=== PATIENT | female | born 1965 | race Caucasian/White ===

== ENCOUNTER 2016-11-24 19:02 | Inpatient (IN) | payer MEDICARE, OTHER ==
[~2016-11-24] VITALS: Ht 157.5 cm; Wt 54.1 kg
[~2016-11-24 19:02] MED LIST: NIT1OI2 TD; NOL20 PO
[2016-11-24] MEDS ORDERED: morphine 4 MG/ML VIAL IV STA (23:41)
[2016-11-24] MEDS ORDERED: SODIUM CHLORIDE 0.9% 1L BAG IV* STA (23:41)
[2016-11-25] MEDS ORDERED: VANCOMYCIN 1 GM (PMX) 250 ML IVPB SCH
[2016-11-25] MEDS ORDERED: PIPER-TAZO 3.375 GM IV (PMX) 100 ML IVPB ONE
--- NOTE | 2016-11-25 | RADRPT ---
PROCEDURE: XR Chest. CLINICAL INDICATION: Chest pain. Possible sepsis TECHNIQUE: Portable AP view of the chest was obtained. COMPARISON: 09/17/2014 FINDINGS: The cardiomediastinal silhouette is within normal limits. The lungs are clear. Left subclavian appr oach venous access device is again noted the tip in the upper right atrium. There is no evidence for pleural effusion, pneumothorax or pulmonary vascular congestion. The osseous structures are intact with no evidence for acute abnormality. RPTAT:HJJR IMPRESSION: No evidence for acute intrathoracic pathology or change compared to 09/17/2014. Physician Ike Date Time Electronically viewed and signed by Physician Ike on 11/25/2016 00:00 /
[2016-11-25 00:53] LABS: INR 0.99; PROTIME 13.1 Sec (12.2-14.2)
[2016-11-25 00:54] LABS: PARTIAL THROMBOPLASTIN TIME 31.4 Sec (25.0-35.0)
[2016-11-25 01:09] LABS: BASOPHILS % 0.4 % (0.0-2.0); EOSINOPHILS % 0.2 % (0.0-7.0); HEMATOCRIT 33.4 % (37.0-47.0); HEMOGLOBIN 11.3 g/dl (12.0-16.0); LYMPHOCYTES # 1.7 10^3/ul (0.8-2.9); LYMPHOCYTES % 32.8 % (15.0-51.0); MEAN CORPUSCULAR HEMOGLOBIN 30.5 pg (29.0-33.0); MEAN CORPUSCULAR HGB CONC 33.8 g/dl (32.0-37.0); MEAN CORPUSCULAR VOLUME 90.4 fl (82.0-101.0); MONOCYTE # 0.5 10^3/ul (0.3-0.9); MONOCYTES % 9.6 % (0.0-11.0); PLATELET COUNT 172 10^3/UL (140-440); RED BLOOD COUNT 3.69 10^6/ul (4.20-5.40); RED CELL DISTRIBUTION WIDTH 12.2 % (11.5-14.5); UNCORRECTED WBC 5.3 10^3/ul (4.8-10.8); WHITE BLOOD COUNT 5.3 10^3/ul (4.8-10.8)
[2016-11-25 01:14] LABS: ALANINE AMINOTRANSFERASE 28 IU/L (13-69); ALBUMIN 3.8 g/dl (3.3-4.9); ALBUMIN/GLOBULIN RATIO 1.15; ALKALINE PHOSPHATASE 96 IU/L (42-121); ANION GAP 19 (8-16); ASPARTATE AMINO TRANSFERASE 27 IU/L (15-46); BLOOD UREA NITROGEN 8 mg/dl (7-20); CALCIUM 8.9 mg/dl (8.4-10.2); CARBON DIOXIDE 19 mmol/L (21-31); CHLORIDE 98 mmol/L (97-110); CREATININE 0.53 mg/dl (0.44-1.00); GLUCOSE 90 mg/dl (70-220); POTASSIUM 4.4 mmol/L (3.5-5.1); SODIUM 132 mmol/L (135-144); TOTAL PROTEIN 7.1 g/dl (6.1-8.1); TROPONIN-I < 0.012 ng/ml (0.00-0.12)
[2016-11-25 01:15] LABS: CONDITION 1
[2016-11-25 01:44] LABS: ADD UMIC YES; URINE BILIRUBIN (Dip) NEGATIVE (NEGATIVE); URINE BLOOD (Dip) 1+ (NEGATIVE); URINE COLOR LT. YELLOW (YELLOW); URINE GLUCOSE (Dip) NEGATIVE (NEGATIVE); URINE KETONES (Dip) 15 (NEGATIVE); URINE LEUKOCYTE ESTERASE (Dip) NEGATIVE (NEGATIVE); URINE NITRITE (Dip) NEGATIVE (NEGATIVE); URINE TOTAL PROTEIN (Dip) NEGATIVE (NEGATIVE); URINE UROBILINOGEN (Dip) 0.2 E.U./dL (0.1-1.0)
--- NOTE | 2016-11-25 01:46 | RADRPT ---
PROCEDURE: Ultrasound bilateral breast CLINICAL INDICATION: Pain status post mastectomy times 3 months, swelling. The patient is status post bilateral mastectomy with implant reconstructions on 08/25/2016. The patient has right breast c ellulitis with fever and elevated white blood cell count and mild left breast discomfort. The patien t is being admitted to the hospital and placed on antibiotics. TECHNIQUE: Sonographic evaluation of bilateral reconstructed breasts was performed with samano scal e and color imaging. Images were reviewed on a high-resolution PACS workstation. COMPARISON: None available FINDINGS: Bilateral breast implants. Centered at 6 o'clock position of the reconstructed right breast there i s decreased echogenicity involving the skin and subcutaneous tissues extending to the surface of the underlying implant which is compatible with edema and inflammation and possible abscess measuring a pproximately 2.7 x 0.9 x 3.4 cm. The soft tissues surrounding the left breast implant are unremarkab le. IMPRESSION: Bilateral breast implants. Centered at 6 o'clock position of the reconstructed right breast there is decreased echogenicity involving the skin and subcutaneous tissues extending to the surface of the underlying implant which is compatible with edema and inflammation and possible abscess measuring a pproximately 2.7 x 0.9 x 3.4 cm. This is consistent with the clinical findings. Recommendation: Clinical management and follow-up. A call report was made to <<Referring Physic ians Name>> on <<DATETIME>>. BIRADS 3 - probably benign RPTAT: HJES .Nic Beaulieu MD, MD Date Time Electronically viewed and signed by .Nic Beaulieu MD, on 11/25/2016 01:46 .S/
[2016-11-25] MEDS ORDERED: DICLOFENAC SODIUM 37.5 MG/ML VIAL IV STA (01:50)
[2016-11-25] MEDS ORDERED: ACETAMINOPHEN 325 MG TAB PO ONE (02:00)
[2016-11-25 03:19] LABS: BACTERIA,URINE RARE; SQUAMOUS EPITHELIAL CELL,UR FEW; URINE RBCS NONE SEEN /HPF (0)
[2016-11-25] MEDS ORDERED: ACETAMINOPHEN 325 MG TAB PO PRN ×2 (05:30→08:30)
[2016-11-25] MEDS ORDERED: SOD CHLORIDE 0.9% 1,000 ML IV ONE (05:30)
[2016-11-25] MEDS ORDERED: ONDANSETRON 4 MG INJ IV PRN ×2 (05:30→08:30)
--- NOTE | 2016-11-25 07:13 | ERA ---
ER Documentation Chief Complaint Date/Time DATE: 11/25/16 TIME: 07:03 Chief Complaint hx breast ca, ovarian ca, fever today, taking chemo HPI This 51-year-old female presents for fever, chills, bilateral breast pain with right being greater than left. States that she is actually had right breast pain for over a week. She saw Dr. Herrmann, plastic surgeon who performed her breast implant surgery on August 25 of this year after her mastectomy. 3 days ago he started her on Bactrim. She states that the infection is getting worse. She has had no discharge.. Patient has not received chemo for over a year and states that is approximately time her Port-A-Cath to be removed. ROS All systems reviewed and are negative except as per history of present illness. Medications Home Meds Active Scripts Nitroglycerin* (Nitro-Bid* Oint (Pkt)) 1 Inch Oint, 0.5 INCH TD DAILY for 4 Days Prov:JUAN HERRMANN MD 08/26/16 Reported Medications Tamoxifen Citrate* (Tamoxifen Citrate*) 20 Mg Tab, 20 MG PO DAILY, TAB 08/11/16 Allergies Allergies: Coded Allergies: hydrocodone (Verified Allergy, Intermediate, "CRAWLING ON SKIN FEELING", 08/25/16) PMhx/Soc History of Surgery: Yes (RT BREAST LUMP REMOVED, EDNA BREAST SURGERY, HYSTERECTOMY) Anesthesia Reaction: No Hx Neurological Disorder: No Hx Respiratory Disorders: No Hx Cardiac Disorders: No Hx Psychiatric Problems: No Hx Miscellaneous Medical Probl: Yes (RT BREAST CA,OVARIAN CA) Hx Alcohol Use: No Hx Substance Use: No Hx Tobacco Use: No Smoking Status: Never smoker Physical Exam Vitals Vital Signs Date Time Temp Pulse Resp B/P Pulse Ox O2 Delivery O2 Flow Rate FiO2 11/25/16 06:51 69 18 90/64 99 Room Air 11/25/16 06:03 56 16 76/54 99 Room Air 11/25/16 04:38 98.3 69 14 83/51 99 Room Air 11/25/16 02:33 72 16 99/62 99 Room Air 11/24/16 19:37 101.9 108 20 117/59 99 Physical Exam Const: [] No acute distress Head: Atraumatic Eyes: Normal Conjunctiva ENT: Normal External Ears, Nose and Mouth. Neck: Full range of motion..~ No meningismus. Resp: Clear to auscultation bilaterally Cardio: Regular tachycardia, no murmurs Abd: Soft, non tender, non distended. Normal bowel sounds Breast exam: Left Port-A-Cath in place. Superior to Port-A-Cath there is an area of erythema. Right breast with significant erythema originating mostly in the 5 o'clock position but almost circumferential to the nipple with induration , no fluctuance, positive calor, positive moderate tenderness Back: No midline or flank tenderness Ext: No cyanosis, or edema Neur: Awake and alert and oriented 3, no focal deficits Result Diagram: 11/24/16 2342 11/24/16 2342 Results 24 hrs Laboratory Tests Test 11/24/16 23:42 11/25/16 00:37 11/25/16 02:30 11/25/16 04:30 Activated Partial Thromboplast Time 31.4Sec Alanine Aminotransferase (ALT/SGPT) 28IU/L Albumin 3.8g/dl Albumin/Globulin Ratio 1.15 Alkaline Phosphatase 96IU/L Anion Gap 19 Aspartate Amino Transf (AST/SGOT) 27IU/L Basophils # 0.010^3/ul Basophils % 0.4% Blood Urea Nitrogen 8mg/dl Calcium Level 8.9mg/dl Carbon Dioxide Level 19mmol/L Chloride Level 98mmol/L Creatinine 0.53mg/dl Direct Bilirubin 0.00mg/dl Eosinophils # 0.010^3/ul Eosinophils % 0.2% Globulin 3.30g/dl Glucose Level 90mg/dl Hematocrit 33.4% Hemoglobin 11.3g/dl INR International Normalized Ratio 0.99 Indirect Bilirubin 0.0mg/dl Lactic Acid Level 1.0mmol/L < 0.5mmol/L < 0.5mmol/L Lymphocytes # 1.710^3/ul Lymphocytes % 32.8% Mean Corpuscular Hemoglobin 30.5pg Mean Corpuscular Hemoglobin Concent 33.8g/dl Mean Corpuscular Volume 90.4fl Mean Platelet Volume 10.0fl Monocytes # 0.510^3/ul Monocytes % 9.6% Neutrophils # 3.010^3/ul Neutrophils % 57.0% Nucleated Red Blood Cells # 0.010^3/ul Nucleated Red Blood Cells % 0.0/100WBC Platelet Count 31057^3/UL Potassium Level 4.4mmol/L Prothrombin Time 13.1Sec Prothrombin Time Ratio 1.0 Red Blood Count 3.6910^6/ul Red Cell Distribution Width 12.2% Sodium Level 132mmol/L Total Bilirubin 0.0mg/dl Total Protein 7.1g/dl Troponin I < 0.012ng/ml White Blood Count 5.310^3/ul Urine Bacteria RARE Urine Bilirubin NEGATIVE Urine Clarity CLEAR Urine Color LT. YELLOW Urine Glucose NEGATIVE% Urine Hemoglobin 1+ Urine Ketones 15 Urine Leukocyte Esterase NEGATIVE Urine Microscopic RBC NONE SEEN/HPF Urine Microscopic WBC 0-2/HPF Urine Nitrite NEGATIVE Urine Specific Chauncey 1.010 Urine Squamous Epithelial Cells FEW Urine Total Protein NEGATIVE Urine Urobilinogen 0.2 E.U./dL Urine Yeast FEW Urine pH 6.0 Current Medications Medications (Trade) Dose Ordered Sig/Carissa Route PRN Reason Start Time Stop Time Status Last Admin Dose Admin Vancomycin HCl 250 ml @ 125 mls/hr ONCE IVPB 11/25/16 00:00 11/25/16 01:59 DC 11/25/16 01:57 Piperacillin Sod/ Tazobactam Sod (Zosyn 3.375gm/ 100 ml (Pmx)) 100 ml @ 200 mls/hr ONCE ONCE IVPB 11/25/16 00:00 11/25/16 00:29 DC 11/25/16 00:42 Sodium Chloride (NS) 1,710 ml BOLUS OVER 2 HOURS STAT IV* 11/24/16 23:41 11/24/16 23:45 DC 11/25/16 00:42 Morphine Sulfate (morphine) 4 mg ONCE STAT IV 11/24/16 23:41 11/24/16 23:45 DC Diclofenac Sodium (Dyloject) 37.5 mg ONCE STAT IV 11/25/16 01:50 11/25/16 01:51 DC 11/25/16 01:57 Acetaminophen 650 mg 650 mg ONCE ONCE PO 11/25/16 02:00 11/25/16 02:01 DC 11/25/16 01:57 Sodium Chloride (NS) 1,000 ml @ 1,000 mls/hr Q1H ONCE IV 11/25/16 05:30 11/25/16 06:29 DC 11/25/16 05:13 Ondansetron HCl (Zofran Inj) 4 mg ER BRIDGE PRN IV NAUSEA AND/OR VOMITING 11/25/16 05:30 11/26/16 05:29 Acetaminophen (Tylenol Tab) 650 mg ER BRIDGE PRN PO MILD PAIN/FEVER 11/25/16 05:30 11/26/16 05:29 Procedures/MDM Patient with significant breast cellulitis of the right breast with initially septic vitals. She also failed outpatient treatment with Bactrim. She was given vancomycin and Zosyn empirically. She was given 30 cc/kg of IV fluid which reduced her temperature as well as heart rate. Laboratory analysis she has no signs of severe sepsis as she has a normal lactic acid and no elevated white count. Patient refused morphine and she said that her pain was improving. Dr. Herrmann came and saw the patient in the emergency room and agreed with admission for IV antibiotics but doubt any surgical need at this time. I do her states that after breast implantation some fluid below the skin is completely normal. He is being admitted and believe her Port-A-Cath needs to be addressed as well. Dr. Chávez is admitting to telemetry. Reason for telemetry is at the patient has had the continuous low blood pressure readings. I believe this is an equipment problem is she is completely alert oriented with strong pulses and has no symptoms of lightheadedness during these low readings. She was given additional liter of fluid for this. Critical care time 31 minutes: This includes treatment of sepsis, treatment of unstable vital signs, careful fluid administration, early antibiotic administration, we will visits the patient's bedside to reassess status especially with low blood pressure readings, discussion with patient, admitting doctor, plastic surgeon, chart review. This does not include billable procedures Ultrasound interpretation, bilateral breasts: Mild fluid collection below right breast., No other lesions visualized EKG interpretation: Normal sinus rhythm rate of 75, normal axis, normal intervals, no ST or T-wave changes concerning for acute ischemia, normal EKG bus monitor interpretation: Initial sinus tachycardia followed by normal sinus rhythm without arrhythmia Chest x-ray interpretation: No acute process, no infiltrate I see no pneumothorax, I see no widened mediastinum, no acute fracture Departure Diagnosis: Primary Impression: Cellulitis of right breast Additional Impressions: Sepsis Failure of outpatient treatment Hyponatremia Condition: Serious ELIASSHAMARALICEMICKIE GÓMEZ Nov 25, 2016 07:13
[2016-11-25] MEDS ORDERED: AMLO5TAB4 GTB (07:20)
[2016-11-25] MEDS ORDERED: ASPI81TA3 GTB (07:20)
[2016-11-25] MEDS ORDERED: CLON-379 GTB (07:25)
[2016-11-25] MEDS ORDERED: ATOR40TA68 GTB (07:25)
[2016-11-25] MEDS ORDERED: DULR PR (07:26)
[2016-11-25] MEDS ORDERED: IPRA3AMP INHALATION (07:27)
[2016-11-25] MEDS ORDERED: EPO10ESRD SC (07:28)
[2016-11-25] MEDS ORDERED: FERR220S2 GTB (07:29)
[2016-11-25] MEDS ORDERED: FLEETOIL PR (07:30)
[2016-11-25] MEDS ORDERED: GLUC1KIT2 IJ (07:31)
[2016-11-25] MEDS ORDERED: HEP30MU30 IJ (07:31)
[2016-11-25] MEDS ORDERED: APR50 GTB (07:32)
[2016-11-25] MEDS ORDERED: FURO40SO4 GTB (07:33)
[2016-11-25] MEDS ORDERED: LORA-444 GTB (07:34)
[2016-11-25] MEDS ORDERED: UDREG GTB (07:34)
[2016-11-25] MEDS ORDERED: POLY17PO6 PO (07:35)
[2016-11-25] MEDS ORDERED: NOVO3I SC ×2 (07:36)
[2016-11-25] MEDS ORDERED: OMEP20CA16 GTB (07:36)
[2016-11-25] MEDS ORDERED: UDROBDM GTB (07:38)
[2016-11-25] MEDS ORDERED: SENN8.8S5 GTB (07:39)
[2016-11-25] MEDS ORDERED: LEVO125T GTB (07:41)
[2016-11-25] MEDS ORDERED: PYRI50CA GTB (07:43)
[2016-11-25] MEDS ORDERED: UDTYL GTB (07:43)
[2016-11-25] MEDS ORDERED: ASCO500C7 GTB (07:44)
[2016-11-25] MEDS ORDERED: BISACODYL 10 MG SUPP PR PRN (08:30)
[2016-11-25] MEDS ORDERED: ACETAMINOPHEN 650MG/20.3ML CUP GTB PRN (08:30)
[2016-11-25] MEDS ORDERED: LORAZEPAM 1 MG TAB GTB PRN (08:30)
[2016-11-25] MEDS ORDERED: morphine 2 MG INJ IV PRN (08:30)
[2016-11-25] MEDS ORDERED: NACL 0.9% 3 ML SYG IV SCH (08:30)
[2016-11-25] MEDS ORDERED: MINERAL OIL 133 ML ENEMA PR PRN (08:30)
[2016-11-25] MEDS ORDERED: VANCOMYCIN IV PER PHARMACY XX SCH (08:30)
[2016-11-25] MEDS ORDERED: GUAIFENESIN/DM 5ML CUP GTB PRN (08:30)
[2016-11-25] MEDS ORDERED: ALBUTEROL/IPRATROPIUM (NEB) 3 ML AMP INH PRN (08:30)
[2016-11-25] MEDS ORDERED: AMLODIPINE 5 MG TAB GTB SCH (09:00)
[2016-11-25] MEDS ORDERED: ASPIRIN 81 MG TAB GTB SCH (09:00)
[2016-11-25] MEDS ORDERED: POLYETHYLENE GLYCOL 17 GM PACKET PO SCH (09:00)
[2016-11-25] MEDS ORDERED: LEVOTHYROXINE 125 MCG TAB GTB SCH (09:00)
[2016-11-25] MEDS: ASCORBIC ACID 500 MG TAB GTB SCH (09:00)
[2016-11-25] MEDS ORDERED: FUROSEMIDE 40 MG/4 ML CUP GTB SCH (09:00)
[2016-11-25] MEDS ORDERED: HEPARIN 1000 UNITS/ML 30 ML INJ SC SCH (09:00)
[2016-11-25] MEDS ORDERED: PYRIDOXINE 50 MG TAB GTB SCH (09:00)
[2016-11-25] MEDS ORDERED: SENNA (PO SYG) GTB SCH (09:00)
[2016-11-25] MEDS: HEPARIN 5,000 UNIT/0.5 ML SYG SC SCH ×2 (09:00→22:43)
[2016-11-25] MEDS ORDERED: SENNA TAB GTB SCH (09:00)
[2016-11-25] MEDS ORDERED: METOCLOPRAMIDE (1 MG/ML) 10 ML CUP GTB SCH (12:00)
[2016-11-25] MEDS: CEFEPIME 1GM/50 ML (PMX) 50 ML IVPB SCH ×2 (12:35→22:42)
[2016-11-25] MEDS: FERROUS SULFATE (EC) 325 MG TAB PO SCH ×2 (12:45→13:51)
[2016-11-25 13:00] VITALS: TEMP 98.3
[2016-11-25] MEDS: VANCOMYCIN 750 MG in SOD CHLORIDE 0.9% 150 ML IVPB SCH (15:35)
[2016-11-25] MEDS ORDERED: CEFTRIAXONE 1 GM/50 ML (PMX) 50 ML IVPB SCH (16:00)
[2016-11-25 17:30] VITALS: BP 108/61; PULSE 77; RESP 14
--- NOTE | 2016-11-25 17:35 | PN ---
DATE: 11/25/2016 SUBJECTIVE: No acute events overnight. Still waiting to be seen by surgery team. OBJECTIVE: VITAL SIGNS: Stable, no fevers. GENERAL: The patient lying in bed, answering questions appropriately. No acute distress. HEENT: Pupils equal, round, reactive to light. Extraocular muscles intact. NECK: Supple, no thyromegaly. LUNGS: Clear to auscultation bilaterally. CARDIOVASCULAR: S1, S2 heard. No rubs or gallops. ABDOMEN: Soft, nontender, nondistended. Normal bowel sounds. No rebound or guarding. THORAX: Left Port-A-Cath in place. Still erythema around Port-A-Cath site. BREASTS: Right breast shows significant erythema around the 5 o'clock position. Tender to palpation. MUSCULOSKELETAL: No lower extremity edema bilaterally. NEUROLOGIC: No focal deficits. LABORATORY DATA: There is no new CBC or basic metabolic panel from this morning. Again, the breast ultrasound did show bilateral breast implants around 6:00 position of the reconstructed right breast. There is decreased echogenicity involving the skin and subcutaneous tissues extending to the surface of the underlying implant, compatible with edema and inflammation and possible abscess 2.7 x 1 x 3.4 cm. ASSESSMENT AND PLAN: A 51-year-old female with history of breast and ovarian cancer on chemotherapy, who complains of fevers and chills and breast pain, found with signs of cellulitis in the right breast. 1. Breast redness. cellulitis. Again, ultrasound results as mentioned above. Continue broad spectrum antibiotics. Will get either plastic surgery, general surgery consult. Consider need for I and D. Follow up labs in the morning. Continue pain control medications and antiemetic medicines. Consider IV fluids as well. Try to get the correct home medication list for the patient as well. 2. History of breast cancer. To monitor for now. She is taking tamoxifen at home. Consider restarting that medicine for now. 3. GI prophylaxis. Add a PPI. 4. Deep venous thrombosis prophylaxis. Heparin subcutaneously. Dictated By: MARY CLANCY Conf#: [id number] DID#: [id number] MTDD
[2016-11-25 17:50] VITALS: Ht 157.5 cm; Wt 54.1 kg
[2016-11-25 20:12] VITALS: PULSE 69
[2016-11-25] MEDS ORDERED: ATORVASTATIN 40 MG TAB GTB SCH (21:00)
[2016-11-25 21:18] VITALS: BP 117/62; RESP 16
--- NOTE | 2016-11-25 23:10 | HP ---
Date/Time of Note Date/Time of Note DATE: 11/25/16 TIME: 23:10 Assessment/Plan VTE Prophylaxis VTE Prophylaxis Intervention: heparin Assessment/Plan Assessment/Plan IMPRESSION 1. Right Breast cellulitis with possible abscess 2. hx of Breast Cancer s/p mastectomy and breast implant 3. hx of Ovarian cancer 4. Normocytic Anemia: likely 2/2 chronic disease PLAN Abx f/u culture results notify Dr. Herrmann, pt's plastic surgeon. ER was trying to get a hold of him. Pt might need removal of breast implant if she does not respond to abx Transfuse hgb as needed HPI/ROS Admit Date/Time Admit Date/Time Nov 25, 2016 at 05:32 Hx of Present Illness This 51-year-old female presents for fever, chills, bilateral breast pain with right being greater than left. States that she is actually had right breast pain for over a week. She saw Dr. Herrmann, plastic surgeon who performed her breast implant surgery on August 25 of this year after her mastectomy. 3 days ago he started her on Bactrim. She states that the infection is getting worse. She has had no discharge.. Patient has not received chemo for over a year. she still has Port-A-Cath. In ER Breastu/s showed Bilateral breast implants. Centered at 6 o'clock position of the reconstructed right breast there is decreased echogenicity involving the skin and subcutaneous tissues extending to the surface of the underlying implant which is compatible with edema and inflammation and possible abscess measuring approximately 2.7 x 0.9 x 3.4 cm PMH/Family/Social Past Medical History Medical History: cancer Social History Alcohol Use: occasionally Smoking Status: Never smoker Drug Use: none Exam/Review of Systems Vital Signs Vitals Vital Signs Date Time Temp Pulse Resp B/P Pulse Ox O2 Delivery O2 Flow Rate FiO2 11/25/16 21:18 98.9 67 16 117/62 100 11/25/16 17:30 Room Air Exam Constitutional: alert, oriented, well developed Head: atraumatic, normocephalic Eyes: EOMI, PERRL Respiratory: clear to auscultation, normal air movement Cardiovascular: nl pulses, regular rate and rhythm Gastrointestinal: non-tender, soft Extremities: normal pulses Neurological: other (erythema and swelling of Right breast) Labs Result Diagram: 11/24/16 2342 11/24/16 2342 Medications Medications Current Medications Ondansetron HCl (Zofran Inj) 4 mg Q6H PRN IV NAUSEA AND/OR VOMITING; Start at 08:30 Acetaminophen (Tylenol Tab) 650 mg Q6H PRN PO PAIN LEVEL 1-3 OR FEVER; Start at 08:30 Morphine Sulfate (morphine) 2 mg Q4H PRN IV SEVERE PAIN LEVEL 7-10; Start 11/25 at 08:30 Acetaminophen (Tylenol Liquid) 650 mg Q4H PRN GTB PAIN OR TEMP ABOVE 38C; Start 11/25/16 at 08:30 Amlodipine Besylate (Norvasc) 5 mg DAILY GTB ; Start 11/25/16 at 09:00; Status Future Hold Ascorbic Acid (Vitamin C) 500 mg DAILY GTB ; Start 11/25/16 at 09:00 Aspirin (Aspirin) 81 mg DAILY GTB ; Start 11/25/16 at 09:00; Status Future Hold Bisacodyl (Dulcolax Supp) 10 mg Q24H PRN [place] CONSTIPATION; Start 11/25/16 at 08: 30 Clonidine (Catapres) 0.1 mg Q6H PRN GTB ELEVATED BLOOD PRESSURE; Start at 08:30 Furosemide (Lasix) 20 mg DAILY GTB ; Start 11/25/16 at 09:00; Status Future Hold Guaifenesin/ Dextromethorphan (Robitussin Dm Liquid Cup) 10 ml Q4H PRN GTB COUGH; Start 11/25/16 at 08:30 Lorazepam (Ativan) 2 mg Q6H PRN GTB ANXIETY; Start 11/25/16 at 08:30 Metoclopramide HCl (Reglan Liq) 5 mg Q6 GTB ; Start 11/25/16 at 12:00; Status Future Hold Polyethylene Glycol (Miralax) 17 gm DAILY PO ; Start 11/25/16 at 09:00; Status Future Hold Ferrous Sulfate 325 mg 325 mg TID PO Last administered on 11/25/16 13:51; Admin Dose 325 MG; Start 11/25/16 at 09:00; Status Future Hold Cefepime HCl (Maxipime 1gm/50 ml (Pmx)) 50 ml @ 100 mls/hr Q12 IVPB Last administered on 11/25/16 22:42; Admin Dose 100 MLS/HR; Start 11/25/16 at 09:00 Heparin Sodium (Porcine) (Heparin (5000 Units/0.5 ml)) 5,000 unit Q12 SC Last administered on 11/25/16 22:43; Admin Dose 5,000 UNIT; Start 11/25/16 at 09:00 Senna 1 tab 1 tab BID GTB ; Start 11/25/16 at 09:00; Status Future Hold Vancomycin HCl/ Sodium Chloride (Vancocin/NS) 150 ml @ 75 mls/hr Q12H IVPB Last administered on 11/25/16 15:35; Admin Dose 75 MLS/HR; Start 11/25/16 at 15 :30 Pantoprazole (Protonix Tab) 40 mg DAILY@06 PO ; Start 11/26/16 at 06:00 CARINA DE LA ROSA MD Nov 25, 2016 23:10
[2016-11-26] VITALS (12 sets, daily range): BP systolic 99–122; BP diastolic 54–58; PULSE 50–72; RESP 16–18
[2016-11-26] MEDS: VANCOMYCIN 750 MG in SOD CHLORIDE 0.9% 150 ML IVPB SCH ×2 (04:00→15:30)
[2016-11-26] MEDS: PANTOPRAZOLE (EC) 40 MG TAB PO SCH (05:19)
--- NOTE | 2016-11-26 06:56 | PN ---
Date/Time of Note Date/Time of Note DATE: 11/25/16 TIME: 06:50 Assessment/Plan Lines/Catheters IV C[facility] Type ([facility] Saline Lock Assessment/Plan Assessment/Plan Patient is doing well since starting antibiotics. She should continue IV antibiotics until subjective and objective fevers are gone x 24-48 hours, and erythema is completely improved x 24-48 hours. The fluid shown on the ultrasound result is an incidental finding as there is always a small amount of periprosthetic fluid around breast implants. defer management of port irritation to general surgery team Seen/examined 11/25 @630am Subjective 24 Hr Interval Summary patient known to my practice. she had experienced 2 weeks of erythema and pain before presenting to my office this tuesday, where she was given oral antibiotics. after her condition did not improved, she went to the ER where she was admitted for IV abx. She currently feels well, reports that fevers/ chills have improved. she also reports irritation at her port site Exam/Review of Systems Vital Signs Vitals Vital Signs Date Time Temp Pulse Resp B/P Pulse Ox O2 Delivery O2 Flow Rate FiO2 11/26/16 04:38 99.0 62 16 102/58 97 11/25/16 17:30 Room Air Intake and Output 11/25/16 11/25/16 11/26/16 15:00 23:00 07:00 Intake Total 700 ml Balance 700 ml Exam Free Text/Dictation General: pleasant, cooperative Right breast: warm, erythema markedly decreased since previous exam. no fluctuance left chest: erythema overlying port site Results Free Text/Dictation US breast: small fluid collection Result Diagram: 11/24/16 2342 11/24/16 2342 JUAN ACUNA MD Nov 26, 2016 06:56
[2016-11-26 08:07] LABS: BASOPHILS % 0.3 % (0.0-2.0); EOSINOPHILS % 0.9 % (0.0-7.0); HEMATOCRIT 31.2 % (37.0-47.0); HEMOGLOBIN 10.8 g/dl (12.0-16.0); LYMPHOCYTES # 2.2 10^3/ul (0.8-2.9); LYMPHOCYTES % 45.3 % (15.0-51.0); MEAN CORPUSCULAR HGB CONC 34.5 g/dl (32.0-37.0); MEAN CORPUSCULAR VOLUME 89.8 fl (82.0-101.0); MEAN PLATELET VOLUME 9.5 fl (7.4-10.4); MONOCYTE # 0.6 10^3/ul (0.3-0.9); MONOCYTES % 11.3 % (0.0-11.0); NEUTROPHIL # 2.1 10^3/ul (1.6-7.5); NEUTROPHILS % 42.2 % (39.0-77.0); PLATELET COUNT 167 10^3/UL (140-440); RED BLOOD COUNT 3.48 10^6/ul (4.20-5.40); RED CELL DISTRIBUTION WIDTH 12.9 % (11.5-14.5); UNCORRECTED WBC 4.9 10^3/ul (4.8-10.8); WHITE BLOOD COUNT 4.9 10^3/ul (4.8-10.8)
[2016-11-26 08:08] LABS: ALBUMIN 3.4 g/dl (3.3-4.9)
[2016-11-26 08:09] LABS: POTASSIUM 3.9 mmol/L (3.5-5.1)
[2016-11-26 08:11] LABS: CREATININE 0.54 mg/dl (0.44-1.00)
[2016-11-26 08:12] LABS: ALBUMIN/GLOBULIN RATIO 0.97; BILIRUBIN,INDIRECT 0.1 mg/dl (0-1.1); BILIRUBIN,TOTAL 0.1 mg/dl (0.2-1.3); CALCIUM 8.7 mg/dl (8.4-10.2); PHOSPHORUS 3.9 mg/dl (2.5-4.9); TOTAL PROTEIN 6.9 g/dl (6.1-8.1)
[2016-11-26 08:13] LABS: CHOL/HDL RATIO 3.4 RATIO; MAGNESIUM 1.7 mg/dl (1.7-2.5)
[2016-11-26 08:22] LABS: CONDITION 1
[2016-11-26] MEDS: ASCORBIC ACID 500 MG TAB GTB SCH (09:58)
[2016-11-26] MEDS: HEPARIN 5,000 UNIT/0.5 ML SYG SC SCH ×2 (10:06→20:17)
[2016-11-26] MEDS: CEFEPIME 1GM/50 ML (PMX) 50 ML IVPB SCH ×2 (10:23→20:16)
--- NOTE | 2016-11-26 12:18 | CONS ---
DATE OF ADMISSION: 11/25/2016 DATE OF CONSULTATION: 11/26/2016 TYPE OF CONSULTATION: Surgical. REQUESTING PHYSICIAN: Hospitalist team. REASON FOR CONSULTATION: Evaluation of right breast possible cellulitis, and also site of Port-A-Ca th inflammation. Thank you for the consultation. HISTORY OF PRESENT ILLNESS: This is a 51-year-old female who actually was diagnosed with cancer of the right breast, invasive poorly differentiated, on 11/16/2012. At that time she underwent a parti al mastectomy with axillary lymph bonita dissection, sentinel technique, which was negative for the l ymph nodes. Then after that the patient in June of 2013 was diagnosed with an abdominal pelvic mass which was confirmed to be cancer and so underwent a total abdominal hysterectomy, bilateral roney pingo-oophorectomy and lymph node resection by Dr. Nice. Following that the patient received a cours e of chemotherapy by placement of a Port-A-Cath on the left side. The patient has been followed her doctors. About 2 weeks ago she developed pain, tenderness and redness of the right breast area. A fter 2 weeks she went to Dr. Herrmann on Tuesday, 3 days ago, and Dr. Herrmann started the patient on Mahesh trim, but apparently did not respond and the patient continued to have chills, fever, pain and tende rness and also started developing pain, swelling and tenderness in the left neck area, so she came t o the emergency room 2 days ago and was seen by the emergency room physician. At that time the rick ent had a temperature of 101.9, heart rate of 108, respirations 20, blood pressure 117/59, and satur ation of 99%. Also WBC was 5,300, with 67% segmented, hemoglobin of 11.3, hematocrit 33.4, and so w ith the impression of cellulitis and possible sepsis the patient was admitted and started on antibio tics. Dr. Herrmann also saw the patient yesterday in the emergency room and he recommended to continue the antibiotic IV. We asked the general surgery team and seeing the patient by dez Howard for evaluation of the cellulitis of the neck area. PAST MEDICAL HISTORY: As mentioned, a history of breast cancer, followed later on by ovarian cancer and she underwent an operation for both of them. Also she has had chemotherapy for that. ALLERGIES: HYDROCODONE. MEDICATIONS: Please refer to the reconciliation list. PHYSICAL EXAMINATION: GENERAL: Today, 11/26/2016, the patient was seen in her room. The patient is awake, alert and orie nted x3, in no acute distress at this time. VITAL SIGNS: Temperature is 98.4, heart rate is 69, blood pressure is 90/64, respirations 18 and sa turation is 99%. LABORATORY DATA: WBC today is 4,900, with neutrophils 42% and lymphocytes 45%. Hemoglobin 10.8, he matocrit 31.2. Chemistry today: Sodium normal, potassium 3.9, total bilirubin 0.1, albumin is 3.4. Globulin is 3.5. HEAD AND NECK: Grossly within normal limits. In the area of the neck on the base of the neck on the left side at the level of the clavicle where actually the tubing of the port is passing over that, is an area of redness, cellulitis and tenderness, maybe about 3 x 2 cm. The site of the port itself does not look infected and does not have cellulitis, but slightly higher up, especially over the pa ssage of the tube over the clavicle, it is red, as was mentioned. CHEST: Symmetrical expansion of the hemithoraces. HEART: Regular rhythm. BREASTS: Left breast appears normal, with a slight area of the skin blackening from previous operat ion area at the nipple area, which is about 2 cm. No evidence of cellulitis or abscess. On the righ t breast at the area of the previous scar of partial mastectomy, now there is some redness and cellu litis, but it is not tender anymore. The patient said it was tender before. This area is about 4 x 4 cm. Bilateral implants or expanders are in place. No discharge. ABDOMEN: Soft. A scar of previous laparotomy is present. LOWER EXTREMITIES: Within normal limits. No pitting edema. IMPRESSION: 1. A 51-year-old female status post bilateral mastectomies for cancer of the breast, BRCA positive, and implant replacement immediately, with a skin saving procedure. 2. Now has cellulitis of the right breast at the level of the 7 to 10 o'clock position. 3. Cellulitis of the skin over the area of the port on the left side at the base of the neck. 4. No evidence of leukocytosis, but the patient has experienced and there is documentation of fever and chills. PLAN: Antibiotic has been started by the admitting team and also has been confirmed by Dr. Herrmann, the plastic surgeon. I will discuss the situation of the port and possible infection of the port ar ea with Dr. Maxwell, who is the primary surgeon for the cancer of the breast on this patient, and if h e decides, we will proceed with removal of the port at this admission, or on a later admission. Marley nwhile, continue the patient on IV antibiotics. I will follow along with other colleagues. Dictated By: ANDREW GARDUNO MD PS/NTS Conf#: [id number] DID#: [id number]
--- NOTE | 2016-11-26 13:49 | PN ---
Date/Time of Note Date/Time of Note DATE: 11/26/16 TIME: 13:44 Assessment/Plan VTE Prophylaxis VTE Prophylaxis Intervention: heparin Lines/Catheters IV Catheter Type (from [facility]): Saline Lock Assessment/Plan Chief Complaint/Hosp Course ASSESSMENT AND PLAN: 51-year-old female with history of breast and ovarian cancer on chemotherapy, who complains of fevers and chills and breast pain, found with signs of cellulitis in the right breast and site of Port-A-Cath inflammation. 1. Breast redness - sec to cellulitis. Again, ultrasound performed, results noted. - Continue broad spectrum antibiotics. - f/uplastic surgery, general surgery consult rec's - they are considering removal of the port at this admission, or on a later admission. - follow up labs in the morning. - Continue pain control medications and antiemetic medicines, IV fluids as well. - Try to get the correct home medication list for the patient as well. 2. History of breast cancer. To monitor for now. She is taking tamoxifen at home. Consider restarting that medicine for now. 3. GI prophylaxis- PPI. 4. Deep venous thrombosis prophylaxis. Heparin subcutaneously. Problems: Subjective 24 Hr Interval Summary Free Text/Dictation Pt has some mild chest pain, but overall improved. Seen by plastics and general surgery team as well. Exam/Review of Systems Vital Signs Vitals Vital Signs Date Time Temp Pulse Resp B/P Pulse Ox O2 Delivery O2 Flow Rate FiO2 11/26/16 12:33 69 11/26/16 12:00 97.8 17 122/55 99 11/25/16 17:30 Room Air Intake and Output 11/25/16 11/25/16 11/26/16 15:00 23:00 07:00 Intake Total 700 ml Balance 700 ml Exam GENERAL: The patient lying in bed, answering questions appropriately. No acute distress. HEENT: Pupils equal, round, reactive to light. Extraocular muscles intact. NECK: Supple, no thyromegaly. LUNGS: Clear to auscultation bilaterally. CARDIOVASCULAR: S1, S2 heard. No rubs or gallops. ABDOMEN: Soft, nontender, nondistended. Normal bowel sounds. No rebound or guarding. THORAX: Left Port-A-Cath in place. Still erythema around Port-A-Cath site. BREASTS: Right breast shows erythema around the 5 o'clock position. Some tender to palpation. MUSCULOSKELETAL: No lower extremity edema bilaterally. NEUROLOGIC: No focal deficits. Results Result Diagram: 11/26/16 0723 11/26/16 0723 Results 24 hrs Laboratory Tests Test 11/26/16 07:23 Alanine Aminotransferase (ALT/SGPT) 29 Albumin 3.4 Albumin/Globulin Ratio 0.97 Alkaline Phosphatase 82 Anion Gap 16 Aspartate Amino Transf (AST/SGOT) 23 Basophils # 0.0 Basophils % 0.3 Blood Urea Nitrogen 8 Calcium Level 8.7 Carbon Dioxide Level 22 Chloride Level 101 Cholesterol Level 124 Cholesterol/HDL Ratio 3.4 Creatinine 0.54 Direct Bilirubin 0.00 Eosinophils # 0.0 Eosinophils % 0.9 Globulin 3.50 H Glucose Level 80 HDL Cholesterol 36 L Hematocrit 31.2 L Hemoglobin 10.8 L Indirect Bilirubin 0.1 LDL Cholesterol, Calculated 73 Lymphocytes # 2.2 Lymphocytes % 45.3 Magnesium Level 1.7 Mean Corpuscular Hemoglobin 31.0 Mean Corpuscular Hemoglobin Concent 34.5 Mean Corpuscular Volume 89.8 Mean Platelet Volume 9.5 Monocytes # 0.6 Monocytes % 11.3 H Neutrophils # 2.1 Neutrophils % 42.2 Nucleated Red Blood Cells # 0.0 Nucleated Red Blood Cells % 0.0 Phosphorus Level 3.9 Platelet Count 167 Potassium Level 3.9 Red Blood Count 3.48 L Red Cell Distribution Width 12.9 Sodium Level 135 Total Bilirubin 0.1 L Total Protein 6.9 Triglycerides Level 77 White Blood Count 4.9 Medications Medications Current Medications Ondansetron HCl (Zofran Inj) 4 mg Q6H PRN IV NAUSEA AND/OR VOMITING; Start at 08:30 Acetaminophen (Tylenol Tab) 650 mg Q6H PRN PO PAIN LEVEL 1-3 OR FEVER Last administered on 11/26/16t 10:06; Admin Dose 650 MG; Start 11/25/16 at 08:30 Morphine Sulfate (morphine) 2 mg Q4H PRN IV SEVERE PAIN LEVEL 7-10; Start 11/25 at 08:30 Acetaminophen (Tylenol Liquid) 650 mg Q4H PRN GTB PAIN OR TEMP ABOVE 38C; Start 11/25/16 at 08:30 Amlodipine Besylate (Norvasc) 5 mg DAILY GTB ; Start 11/25/16 at 09:00; Status Future Hold Ascorbic Acid (Vitamin C) 500 mg DAILY GTB Last administered on 11/26/16 09:58 ; Admin Dose 500 MG; Start 11/25/16 at 09:00 Aspirin (Aspirin) 81 mg DAILY GTB ; Start 11/25/16 at 09:00; Status Future Hold Bisacodyl (Dulcolax Supp) 10 mg Q24H PRN ND CONSTIPATION; Start 11/25/16 at 08: 30 Clonidine (Catapres) 0.1 mg Q6H PRN GTB ELEVATED BLOOD PRESSURE; Start at 08:30 Furosemide (Lasix) 20 mg DAILY GTB ; Start 11/25/16 at 09:00; Status Future Hold Guaifenesin/ Dextromethorphan (Robitussin Dm Liquid Cup) 10 ml Q4H PRN GTB COUGH; Start 11/25/16 at 08:30 Lorazepam (Ativan) 2 mg Q6H PRN GTB ANXIETY; Start 11/25/16 at 08:30 Metoclopramide HCl (Reglan Liq) 5 mg Q6 GTB ; Start 11/25/16 at 12:00; Status Future Hold Polyethylene Glycol (Miralax) 17 gm DAILY PO ; Start 11/25/16 at 09:00; Status Future Hold Ferrous Sulfate 325 mg 325 mg TID PO Last administered on 11/25/16 13:51; Admin Dose 325 MG; Start 11/25/16 at 09:00; Status Future Hold Cefepime HCl (Maxipime 1gm/50 ml (Pmx)) 50 ml @ 100 mls/hr Q12 IVPB Last administered on 11/26/16 10:23; Admin Dose 100 MLS/HR; Start 11/25/16 at 09:00 Heparin Sodium (Porcine) (Heparin (5000 Units/0.5 ml)) 5,000 unit Q12 SC Last administered on 11/26/16 10:06; Admin Dose 5,000 UNIT; Start 11/25/16 at 09:00 Senna 1 tab 1 tab BID GTB ; Start 11/25/16 at 09:00; Status Future Hold Vancomycin HCl/ Sodium Chloride (Vancocin/NS) 150 ml @ 75 mls/hr Q12H IVPB Last administered on 11/26/16 04:00; Admin Dose 75 MLS/HR; Start 11/25/16 at 15 :30 Pantoprazole (Protonix Tab) 40 mg DAILY@06 PO Last administered on 11/26/16t 05 :19; Admin Dose 40 MG; Start 11/26/16 at 06:00 MARY LLOYD Nov 26, 2016 13:49
[2016-11-26] MEDS ORDERED: EPOETIN 10000 UNITS/1 ML INJ (ESRD) SC SCH (17:00)
[2016-11-26] MEDS: VANCOMYCIN 1.25 GM in SOD CHLORIDE 0.9% 250 ML IVPB SCH (18:21)
[2016-11-27] VITALS (20 sets, daily range): BP systolic 97–118; BP diastolic 55–65; PULSE 58–79; RESP 16–22
[2016-11-27] MEDS: PANTOPRAZOLE (EC) 40 MG TAB PO SCH (05:27)
[2016-11-27] MEDS: VANCOMYCIN 1.25 GM in SOD CHLORIDE 0.9% 250 ML IVPB SCH ×2 (05:34→17:04)
[2016-11-27] MEDS ORDERED: EPHEDrine SULFATE 50 MG/5 ML SYG ONE (07:00)
[2016-11-27] MEDS: ASCORBIC ACID 500 MG TAB GTB SCH (09:00)
[2016-11-27] MEDS: HEPARIN 5,000 UNIT/0.5 ML SYG SC SCH ×2 (09:00→21:45)
[2016-11-27] MEDS: CEFEPIME 1GM/50 ML (PMX) 50 ML IVPB SCH ×2 (09:15→21:44)
--- NOTE | 2016-11-27 11:21 | PN ---
Date/Time of Note Date/Time of Note DATE: 11/27/16 TIME: 11:19 Assessment/Plan Lines/Catheters IV Catheter Type (from Nrsg): Saline Lock Assessment/Plan Assessment/Plan patient significantly improved from my standpoint, ok to discharge at any time, but needs 2 additional weeks of antibiotics IV, continue current regimen she will call my office on tuesday to follow up if there is still redness after 2 weeks, we may need to remove the implant Subjective 24 Hr Interval Summary no acute events overnight. patient denies subjective fever/chills. going for port removal today Exam/Review of Systems Vital Signs Vitals Vital Signs Date Time Temp Pulse Resp B/P Pulse Ox O2 Delivery O2 Flow Rate FiO2 11/27/16 08:19 60 11/27/16 07:53 98.6 18 118/57 100 11/27/16 04:00 Room Air Intake and Output 11/26/16 11/26/16 11/27/16 15:00 23:00 07:00 Intake Total 720 ml 800 ml Balance 720 ml 800 ml Exam Free Text/Dictation General NAD right breast: erythema significantly improved. minimal inferior redness remaining Results Result Diagram: 11/26/16 0723 11/26/16 0723 JUAN ACUNA MD Nov 27, 2016 11:21
--- NOTE | 2016-11-27 13:52 | PN ---
Date/Time of Note Date/Time of Note DATE: 11/27/16 TIME: 13:49 Assessment/Plan VTE Prophylaxis VTE Prophylaxis Intervention: heparin Lines/Catheters IV Catheter Type (from [facility]): Saline Lock Assessment/Plan Chief Complaint/Hosp Course ASSESSMENT AND PLAN: 51-year-old female with history of breast and ovarian cancer on chemotherapy, who complains of fevers and chills and breast pain, found with signs of cellulitis in the right breast and site of Port-A-Cath inflammation. 1. Breast redness - sec to cellulitis. Again, ultrasound performed, results noted. - Continue broad spectrum antibiotics. - f/uplastic surgery, general surgery consult rec's - pt going for removal of the port later today - follow up labs in the morning. - Continue pain control medications and antiemetic medicines, IV fluids as well. - Try to get the correct home medication list for the patient as well. 2. History of breast cancer. To monitor for now. She is taking tamoxifen at home. Consider restarting that medicine for now. 3. GI prophylaxis- PPI. 4. Deep venous thrombosis prophylaxis. Heparin subcutaneously. 5. Dispo: home in 24 hrs after IV abx set up as outpt, PICC placed, and port cath removed. Problems: Subjective 24 Hr Interval Summary Free Text/Dictation Less breast pain now. Exam/Review of Systems Vital Signs Vitals Vital Signs Date Time Temp Pulse Resp B/P Pulse Ox O2 Delivery O2 Flow Rate FiO2 11/27/16 12:21 61 11/27/16 11:59 98.4 17 118/60 99 11/27/16 04:00 Room Air Intake and Output 11/26/16 11/26/16 11/27/16 15:00 23:00 07:00 Intake Total 720 ml 800 ml Balance 720 ml 800 ml Exam GENERAL: The patient lying in bed, answering questions appropriately. No acute distress. HEENT: Pupils equal, round, reactive to light. Extraocular muscles intact. NECK: Supple, no thyromegaly. LUNGS: Clear to auscultation bilaterally. CARDIOVASCULAR: S1, S2 heard. No rubs or gallops. ABDOMEN: Soft, nontender, nondistended. Normal bowel sounds. No rebound or guarding. THORAX: Left Port-A-Cath in place. Still erythema around Port-A-Cath site. BREASTS: Right breast shows erythema around the 5 o'clock position. Some tender to palpation. MUSCULOSKELETAL: No lower extremity edema bilaterally. NEUROLOGIC: No focal deficits. Results Result Diagram: 11/26/16 0711/26/16 07 Results 24 hrs Laboratory Tests Test 11/26/16 14:28 Vancomycin Level Trough 6.3 L Medications Medications Current Medications Ondansetron HCl (Zofran Inj) 4 mg Q6H PRN IV NAUSEA AND/OR VOMITING; Start at 08:30 Acetaminophen (Tylenol Tab) 650 mg Q6H PRN PO PAIN LEVEL 1-3 OR FEVER Last administered on 11/26/16 10:06; Admin Dose 650 MG; Start 11/25/16 at 08:30 Morphine Sulfate (morphine) 2 mg Q4H PRN IV SEVERE PAIN LEVEL 7-10; Start 11/25 at 08:30 Acetaminophen (Tylenol Liquid) 650 mg Q4H PRN GTB PAIN OR TEMP ABOVE 38C; Start 11/25/16 at 08:30 Amlodipine Besylate (Norvasc) 5 mg DAILY GTB ; Start 11/25/16 at 09:00; Status Future Hold Ascorbic Acid (Vitamin C) 500 mg DAILY GTB Last administered on 11/26/16 09:58 ; Admin Dose 500 MG; Start 11/25/16 at 09:00 Aspirin (Aspirin) 81 mg DAILY GTB ; Start 11/25/16 at 09:00; Status Future Hold Bisacodyl (Dulcolax Supp) 10 mg Q24H PRN IN CONSTIPATION; Start 11/25/16 at 08: 30 Clonidine (Catapres) 0.1 mg Q6H PRN GTB ELEVATED BLOOD PRESSURE; Start at 08:30 Furosemide (Lasix) 20 mg DAILY GTB ; Start 11/25/16 at 09:00; Status Future Hold Guaifenesin/ Dextromethorphan (Robitussin Dm Liquid Cup) 10 ml Q4H PRN GTB COUGH; Start 11/25/16 at 08:30 Lorazepam (Ativan) 2 mg Q6H PRN GTB ANXIETY; Start 11/25/16 at 08:30 Metoclopramide HCl (Reglan Liq) 5 mg Q6 GTB ; Start 11/25/16 at 12:00; Status Future Hold Polyethylene Glycol (Miralax) 17 gm DAILY PO ; Start 11/25/16 at 09:00; Status Future Hold Ferrous Sulfate 325 mg 325 mg TID PO Last administered on 11/25/16 13:51; Admin Dose 325 MG; Start 11/25/16 at 09:00; Status Future Hold Cefepime HCl (Maxipime 1gm/50 ml (Pmx)) 50 ml @ 100 mls/hr Q12 IVPB Last administered on 11/27/16 09:15; Admin Dose 100 MLS/HR; Start 11/25/16 at 09:00 Heparin Sodium (Porcine) (Heparin (5000 Units/0.5 ml)) 5,000 unit Q12 SC Last administered on 11/26/16 10:06; Admin Dose 5,000 UNIT; Start 11/25/16 at 09:00 Senna (Senokot) 1 tab BID GTB ; Start 11/25/16 at 09:00; Status Future Hold Pantoprazole 40 mg 40 mg DAILY@06 PO Last administered on 11/26/16 05:19; Admin Dose 40 MG; Start 11/26/16 at 06:00 Vancomycin HCl/ Sodium Chloride (Vancocin/NS) 250 ml @ 83.333 mls/ hr Q12H IVPB Last administered on 11/27/16 05:34; Admin Dose 83.333 MLS/HR; Start at 17:00 Miscellaneous Information (*Rx Drug Level Order Reminder*) VANCOMYCIN TROUGH AT 0400 ONCE ONCE XX ; Start 11/28/16 at 04:00; Stop 11/28/16 at 04:01 Lidocaine (Xylocaine 1% (Mdv) 20 ml) 20 ml ONCE ONCE SC ; Start 11/27/16 at 14: 00; Stop 11/27/16 at 14:01 MARY LLOYD Nov 27, 2016 13:51
[2016-11-27] MEDS ORDERED: LIDOCAINE 1% (MDV) 20 ML INJ SC ONE (14:00)
[2016-11-27] MEDS ORDERED: MIDAZOLAM 1 MG/ML 2 ML INJ ONE ×2 (14:21)
[2016-11-27] MEDS ORDERED: LIDOCAINE 1% (STERILE-PAK) 30 ML INJ ONE (14:21)
[2016-11-27] MEDS ORDERED: FENTAnyl 50 MCG/ML VIAL ONE (14:32)
[2016-11-27] MEDS ORDERED: PROPOFOL 20 ML ONE ×2 (14:32→14:37)
[2016-11-27] MEDS ORDERED: HYDROmorphONE (0.2 MG/ML) 10ML SYG IV PRN ×3 (15:00)
[2016-11-27] MEDS ORDERED: METOCLOPRAMIDE 10 MG INJ IV PRN (15:00)
[2016-11-27] MEDS ORDERED: ONDANSETRON 4 MG INJ IV PRN (15:00)
[2016-11-27] MEDS ORDERED: MEPERIDINE 25 MG INJ IV PRN (15:00)
[2016-11-27] MEDS ORDERED: DIPHENHYDRAMINE 50 MG INJ IV PRN (15:00)
[2016-11-27] MEDS ORDERED: BUPIVACAINE 0.25%/EPI (SDV) 30 ML INJ INJ ONE (15:07)
[2016-11-27] MEDS ORDERED: BACITRACIN 0.9 GM OINT ONE (15:25)
--- NOTE | 2016-11-27 17:48 | OPR ---
DATE OF OPERATION: 11/27/2016 PREOPERATIVE DIAGNOSES: 1. Infected left Port-A-Cath. 2. Status post bilateral mastectomy and immediate implant. 3. Cellulitis of the right breast. POSTOPERATIVE DIAGNOSES: 1. Infected left Port-A-Cath. 2. Status post bilateral mastectomy and immediate implant. 3. Cellulitis of the right breast. PROCEDURE PERFORMED: Removal of the infected Port-A-Cath. SURGEON: Magdy Garduno MD MATHEMATICS INSTRUCTOR: None. ANESTHESIA: MAC sedation and local. ANESTHESIOLOGIST: Edison Gambino MD INDICATION: The patient is a 51-year-old female who had bilateral mastectomy for cancer of the right breast and BRCA positive in 08/2016, presented to the emergency room with 2 weeks of breast pain, redness, chills and fever, and also redness of the base of the left side of the neck where the Port-A-Cath had been inserted before for chemotherapy. The patient was started on antibiotics by infectious disease and slightly gradually got better, the fever got better. The port has not been used for 1 year and further chemotherapy, there was no need for that anymore and also the port was infected. Therefore, decision was made after discussing with Dr. Maxwell, the primary cancer surgeon for the breast , to remove the port. I discussed with the patient the alternatives of treatment, the risks and benefits of operation, possible complications. The patient understood and she wanted the port to be removed as well. Therefore, we scheduled the patient for operation. DESCRIPTION OF PROCEDURE: The patient was brought to the operating room, placed on operating table in supine position. Anesthesia was induced by the anesthesiologist. Timeout was called. The patient was identified. Site of operation and procedure was discussed among the team. Then, prep and drape was done with Betadine. All through the operation, 30 mL of 0.25% Marcaine with epinephrine was used. First, since there was a lot of inflammation and also the cellulitis at the level of the base of the neck spreading down almost to the bulb of the Port-A-Cath, it was difficult to feel the course of tubing from outside. In any case, injection with local anesthetic was performed and then a skin incision was made about 1 inch above where I could feel the bulb, and carried down through subcutaneous tissue very gently. Eventually the tubings of the catheter were identified. Blunt dissection around the tubing and a clamp was placed on the tubing to prevent dislodgement of the tubing in case it breaks. Then, decision was made to make another incision parallel to this one, about 1 inch below this one transversely and medial on top of the bulb of the port, and then this made about 2.5 cm. Dissection continued down to the metallic bulb and with the clamp I went around it and dislodged it from the cavity. Then, the connection to the tubing was palpated and was from adhesions and gradually the space was developed so that it could easily be pulled out. The clamp was removed from the distal part of the tubing and the tubing attached to the bulb was gently removed completely in whole length, and one could see the end of it, markings were 5, 10, 15 and 20.cm. This specimen was sent for pathologic evaluation. At this time, I squeezed along side of the tract of the catheter and some gelatinous material came out. A culture of this was sent for evaluation, aerobic and anaerobic cultures. Wound was irrigated thoroughly with antibiotic solution and Betadine. Then, the wounds were closed in 1 layer with #3-0 Prolene interrupted vertical mattress sutures were applied. At the end, Betadine ointment was applied and dry dressing was applied and taped to the chest wall. The patient tolerated procedure well. Sponge and instrument count reported to be correct x2. SPECIMEN: 1 culture and 1 Port-A-Cath was sent for pathologic evaluation. Dictated By: MAGDY GARDUNO MD cEdisoncEdison to Alissa donaldson PS/NICK Conf#: [id number] DID#: [id number] LAMAR
[2016-11-28] VITALS (11 sets, daily range): BP systolic 93–124; BP diastolic 51–76; PULSE 54–81; RESP 18–19
[2016-11-28 05:28] LABS: POTASSIUM 3.9 mmol/L (3.5-5.1)
[2016-11-28 05:31] LABS: CALCIUM 8.5 mg/dl (8.4-10.2); CREATININE 0.51 mg/dl (0.44-1.00)
[2016-11-28 05:38] LABS: BASOPHILS % 0.2 % (0.0-2.0); EOSINOPHILS # 0.1 10^3/ul (0.0-0.5); HEMATOCRIT 28.6 % (37.0-47.0); HEMOGLOBIN 9.7 g/dl (12.0-16.0); MEAN CORPUSCULAR HEMOGLOBIN 30.5 pg (29.0-33.0); MEAN CORPUSCULAR HGB CONC 33.8 g/dl (32.0-37.0); MEAN CORPUSCULAR VOLUME 90.1 fl (82.0-101.0); MEAN PLATELET VOLUME 9.6 fl (7.4-10.4); MONOCYTE # 0.3 10^3/ul (0.3-0.9); MONOCYTES % 6.6 % (0.0-11.0); NEUTROPHIL # 2.8 10^3/ul (1.6-7.5); NEUTROPHILS % 54.2 % (39.0-77.0); PLATELET COUNT 169 10^3/UL (140-440); RED BLOOD COUNT 3.18 10^6/ul (4.20-5.40); RED CELL DISTRIBUTION WIDTH 12.7 % (11.5-14.5); UNCORRECTED WBC 5.2 10^3/ul (4.8-10.8); WHITE BLOOD COUNT 5.2 10^3/ul (4.8-10.8)
[2016-11-28] MEDS: PANTOPRAZOLE (EC) 40 MG TAB PO SCH (05:41)
[2016-11-28] MEDS: VANCOMYCIN 1.25 GM in SOD CHLORIDE 0.9% 250 ML IVPB SCH ×2 (05:42→17:28)
[2016-11-28 06:14] LABS: CONDITION 1
[2016-11-28] MEDS: ASCORBIC ACID 500 MG TAB GTB SCH (08:22)
[2016-11-28] MEDS: HEPARIN 5,000 UNIT/0.5 ML SYG SC SCH ×2 (08:22→20:35)
[2016-11-28] MEDS: CEFEPIME 1GM/50 ML (PMX) 50 ML IVPB SCH ×2 (08:23→20:35)
--- NOTE | 2016-11-28 12:17 | RADRPT ---
PROCEDURE: XR Chest AP portable CLINICAL INDICATION: PICC placement TECHNIQUE: An AP portable radiograph of the chest was submitted. COMPARISON: 11/24/2016 FINDINGS: Support Hardware: Since the previous study, the right subclavian Port-A-Cath is been removed. A lef t upper extremity PICC catheter has been placed with the tip appears to cross the midline and lies w ithin the right innominate vein. Cardiovascular: The cardiovascular silhouette appears unremarkable. Lung Coello: The lung coello appear clear with no nodule, alveolar infiltrate, for a interstitial pr ominence evident. Pleural Spaces: No pneumothorax or pleural effusion is identified. Osseous Structures: The osseous structures appear intact. Soft Tissues: The soft tissues appear unremarkable. IMPRESSION: 1. Interval removal of the left-sided Port-A-Cath and placement of a left upper extremity PICC cath eter with the tip crossing the midline lying within the right innominate vein. 2. Otherwise, stable unremarkable portable chest. Physician Marko Date Time Electronically viewed and signed by Physician Marko on 11/28/2016 12:17 /
--- NOTE | 2016-11-28 12:18 | RADRPT ---
PROCEDURE: XR Chest AP portable CLINICAL INDICATION: PICC placement TECHNIQUE: An AP portable radiograph of the chest was submitted. COMPARISON: The study earlier on the same date FINDINGS: Support Hardware: The left upper extremity PICC catheter has been withdrawn to the proximal left sub clavian vein. Cardiovascular: The cardiovascular silhouette appears unremarkable. Lung Coello: The lung coello appear clear with no nodule, alveolar infiltrate, for a interstitial pr ominence evident. Pleural Spaces: No pneumothorax or pleural effusion is identified. Osseous Structures: The osseous structures appear intact. Soft Tissues: The soft tissues appear unremarkable. IMPRESSION: 1. The left upper extremity PICC catheter has been withdrawn to the proximal left subclavian vein. 2. Otherwise, stable unremarkable portable chest. Physician Marko Date Time Electronically viewed and signed by Physician Marko on 11/28/2016 12:18 /
--- NOTE | 2016-11-28 14:40 | PDOCDIS ---
Discharge Instructions CONDITION Patient Condition: Stable HOME CARE INSTRUCTIONS: Special Diet: cardiac ACTIVITY: Activity Restrictions: Slowly Increase Activity FOLLOW UP/APPOINTMENTS Appointments Please take your medications as prescribed, and see your doctor in the clinic in 1 week. MARY LLOYD Nov 28, 2016 14:40
[2016-11-28] MEDS ORDERED: CEFE1PIG IVPB (14:41)
[2016-11-28] MEDS ORDERED: NOL20 PO (14:44)
--- NOTE | 2016-11-28 16:00 | DS ---
DATE OF ADMISSION: 11/25/2016 DATE OF DISCHARGE: 11/28/2016 HOSPITAL COURSE: The patient came in with fever and chills. Also, with bilateral breast pain. She was found with right breast cellulitis and possible abscess. She had imaging studies performed, an d breast ultrasound did show decreased echogenicity involving the skin and subcutaneous tissue exten ding into the surface of the underlying implant compatible with edema and inflammation, possible abs cess about 2.7 x 1 x 3.4 cm. In any event, she was admitted and seen by general surgery team and plastic surgery team who recomme nded IV antibiotic treatment. Her cellulitis improved. She also had some cellulitis around her Por t-A-Cath site, and that was removed by general surgery team as well, and the redness resolved. Her white blood cell count levels trended down to normal range. Her wound culture did show positive Sta ph aureus, but she responded to broad spectrum antibiotics. She is able to ambulate and tolerate a p.o. diet. It is recommended she get IV antibiotics at home for the next 12 days to complete treatm ent, and once that has been set up by caser and home health nursing has been set up, she will be discharged today in improved condition. She will be sent with cefepime 1 gram IV q.12h. for 11 more days and continue tamoxifen, and follow up with the surgeon in clinic in 1 week. FINAL DIAGNOSES: 1. Right breast cellulitis and possible abscess, status post IV antibiotic treatment and Port-A-Cat h removal for cellulitis in that area as well. 2. History of breast cancer, status post mastectomy and breast implant. 3. History of ovarian cancer, status post total abdominal hysterectomy and bilateral salpingo-oopho rectomy in the past. 4. History of right breast lump removal in the past, and bilateral breast surgery in the past. 5. Breast cancer, on chemo. Time spent discharging patient: 40 minutes. Dictated By: MARY CLANCY Conf#: [id number] DID#: [id number]
--- NOTE | 2016-11-28 20:17 | RADRPT ---
PROCEDURE: Ultrasound guidance for placement of needle in left upper extremity vein. CLINICAL INDICATION: PICC placement. TECHNIQUE: Limited sonography of the left upper extremity was performed. Ultrasound images were recorded and st ored in the patient's medical record. COMPARISON: Chest radiograph of the same day. FINDINGS: The ultrasound images demonstrate a patent left upper extremity vein. The PICC line was inserted by the PICC line nurse. IMPRESSION: 1. Ultrasound guidance for a needle placement in a left upper extremity vein. 2. The visualized right upper extremity vein is patent. RPTAT: QQ .Shameka Gunn MD, Date Time Electronically viewed and signed by .Shameka Gunn MD, on 11/28/2016 20:16 .N/
[2016-11-29] VITALS (8 sets, daily range): BP systolic 94–123; BP diastolic 53–70; PULSE 56–77; RESP 18–20
[2016-11-29] MEDS: PANTOPRAZOLE (EC) 40 MG TAB PO SCH (05:10)
[2016-11-29] MEDS: VANCOMYCIN 1.25 GM in SOD CHLORIDE 0.9% 250 ML IVPB SCH ×2 (05:10→16:05)
[2016-11-29 07:49] LABS: BASOPHILS % 0.3 % (0.0-2.0); EOSINOPHILS # 0.1 10^3/ul (0.0-0.5); EOSINOPHILS % 1.9 % (0.0-7.0); HEMATOCRIT 35.9 % (37.0-47.0); HEMOGLOBIN 12.1 g/dl (12.0-16.0); LYMPHOCYTES # 2.8 10^3/ul (0.8-2.9); LYMPHOCYTES % 50.5 % (15.0-51.0); MEAN CORPUSCULAR HEMOGLOBIN 30.5 pg (29.0-33.0); MEAN CORPUSCULAR HGB CONC 33.8 g/dl (32.0-37.0); MEAN CORPUSCULAR VOLUME 90.2 fl (82.0-101.0); MEAN PLATELET VOLUME 9.6 fl (7.4-10.4); MONOCYTE # 0.5 10^3/ul (0.3-0.9); MONOCYTES % 8.7 % (0.0-11.0); NEUTROPHIL # 2.1 10^3/ul (1.6-7.5); NEUTROPHILS % 38.6 % (39.0-77.0); PLATELET COUNT 184 10^3/UL (140-440); RED BLOOD COUNT 3.98 10^6/ul (4.20-5.40); RED CELL DISTRIBUTION WIDTH 12.8 % (11.5-14.5); UNCORRECTED WBC 5.5 10^3/ul (4.8-10.8); WHITE BLOOD COUNT 5.5 10^3/ul (4.8-10.8)
[2016-11-29 07:52] LABS: CONDITION 1; LH ANALYZER COMMENTS 1
[2016-11-29 07:58] LABS: CREATININE 0.53 mg/dl (0.44-1.00)
[2016-11-29] MEDS: CEFEPIME 1GM/50 ML (PMX) 50 ML IVPB SCH ×2 (07:58→18:39)
[2016-11-29] MEDS: ASCORBIC ACID 500 MG TAB GTB SCH (07:58)
[2016-11-29 07:59] LABS: CALCIUM 9.3 mg/dl (8.4-10.2)
[2016-11-29] MEDS: HEPARIN 5,000 UNIT/0.5 ML SYG SC SCH (08:02)
--- NOTE | 2016-11-29 13:58 | PN ---
DATE: 11/29/2016 SUBJECTIVE: Feels much better today in regard to the pain to the left breast anteriorly and also right breast. OBJECTIVE: VITAL SIGNS: Temperature 98.2, 65, 20, blood pressure 116/70, saturation is 98 % on room air. LABORATORIES: WBC is low at 5500 with 78% segmented. The culture which was sent in the operating room from the left Port-A-Cath site cavity has grown Staphylococcus aureus, 2+, was sensitive to most of the antibiotics. ASSESSMENT: Patient is a 51-year-old who presented to chills, fever, and cellulitis of the right breast, and also site of the Port-A-Cath on the left side. Patient was started on antibiotic .prosthesis both breasts, post bilateral mastectomy for cancer, and responded, and on 11/27/2016 I removed the Port-A-Cath and sent the culture which has since grown Staphylococcus aureus. PLAN: The patient is supposed to receive 12 more days of antibiotic IV. Considering the cellulitis and possible abscess of the right breast, this is going to be done at home with help from home health nurses. Also patient has PICC line, and the patient will be followed by Dr. Herrmann in regard to plastic surgery and cellulitis of the right breast, and also will be followed by Dr. Zendejas as well because he did bilateral mastectomy and also because of the Port-A -Cath removal, and to remove the sutures at the end of november r December. Dictated By: ANDREW GARDUNO MD PS/NTS Conf#: [id number] DID#: [id number] CC: MESHA ZENDEJAS MD;*EndCC* MTDD
--- NOTE | 2016-11-30 04:39 | DS ---
DATE OF ADMISSION: 11/25/2016 DATE OF DISCHARGE: 11/29/2016 ADDENDUM The patient was cleared for discharge 11/28/2016, and discharge summary was dictated then by my part ner, Dr. Lion Ingram. Please review his discharge summary for details. The patient remains in st able condition. Vital signs: Temperature 98.3, pulse 77, respirations 18, blood pressure 123/62, sa turations 99% on room air. Physical examination was basically unremarkable. The patient was anxiou s for discharge. She remains in stable condition. Her discharge instructions and discharge medicat ions basically remain the same. For further details, please review discharge summary from 7. Dictated By: SACHIN KRAMER MD, BA/NICK Conf#: [id number] DID#: [id number]
== END 2016-11-29 19:15 | disposition home health service (06) | DRG 600 ==
LOC: E/R 19:02 → MS4 11-25 05:32
PROVIDERS: ADMIT Internal Medicine; ATTEND Internal Medicine
PROC: 0JPT0XZ Removal of Tunneled Vascular Access Device from Trunk Subcutaneous Tissue and Fascia, Open Approach (ICD-10-PCS; principal; 2016-11-25)
PROC: 02H633Z Insertion of Infusion Device into Right Atrium, Percutaneous Approach (ICD-10-PCS; 2016-11-28)
DX: N61.0 Mastitis without abscess (principal); T80.212A Local infection due to central venous catheter, initial encounter; Z90.13 Acquired absence of bilateral breasts and nipples; D64.9 Anemia, unspecified; Z85.43 Personal history of malignant neoplasm of ovary; Z85.3 Personal history of malignant neoplasm of breast
CPT/HCPCS: 36415; 36569; 71010; 76937; 80048; 80053; 80061; 80202; 81001; 81003; 83605; 83735; 84100; 84484; 85025; 85610; 85730; 87040; 87070; 87075; 88300; 93005; 96374; 96375; 96376; J0692; J1644; J2250; J2270; J2405; J2543; J3010; J3370; J7030; J7050